=== PATIENT | male | born 1980 | race Caucasian/White ===

== ENCOUNTER 2019-04-15 08:00 | Emergency (ER) | payer OTHER, SELFPAY ==
--- NOTE | 2019-04-15 08:10 | ED.NAVMDI ---
HPI - Nausea/Vomiting/Diarrhea General Chief complaint: Nausea/Vomiting/Diarrhea Stated complaint: Fever,Diarrhea,Sore Throat,Body Aches Source: patient and RN notes reviewed Mode of arrival: ambulatory Limitations: no limitations Related Data Allergies Allergy/AdvReac Type Severity Reaction Status Date / Time No Known Allergies Allergy Unverified 12/02/17 08:59 Review of Systems Review of Systems: Narrative: CONSTITUTIONAL: Denies malaise, chills, sweats, or fever. EYES: Denies visual changes, redness, or discharge. ENT: Denies rhinorrhea, congestion, sinus pain, otalgia or sore throat. CARDIOVASCULAR: Denies chest pain, palpitations, or edema. RESPIRATORY: Denies cough or dyspnea. GASTROINTESTINAL: Denies abdominal pain, nausea, vomiting, diarrhea, bloody, or mucous stools. GENITOURINARY: Denies dysuria or hematuria. SKIN: Denies rash or itching. MUSCULOSKELETAL: Denies back pain, joint pain, or myalgia. NEUROLOGIC: Denies numbness, weakness, or headache. PSYCHIATRIC: Denies anxiety or depression. All systems reviewed & are unremarkable except as noted in HPI and below PMFSH Comments At time of signature, agree with nursing past medical, surgical, social and family history. There is no relevant family history pertinent to the presenting complaint Exam Narrative: Exam Narrative: GENERAL: Well-appearing, well-nourished, and in no acute distress. HEAD: Normocephalic. EYES: PERRLA, conjunctivae clear. NECK: Supple. No lymphadenopathy CHEST: Speaks in full sentences no respiratory distress. HEART: Regular rate and rhythm. ABDOMEN: Soft, nontender upon palpation, nondistended, normal active bowel sounds, no palpable or pulsatile masses, no guarding. SKIN: Warm, dry, no rash. NEURO: Alert and oriented x3. PSYCH: Normal mood and affect Course Course Emergency Course: Patient is aware of diagnosis, understands and agrees to treatment plan. Anticipatory guidance given. Patient agrees to follow-up as directed and is aware of reasons to seek care at the emergency department. Portions of this record may have been created with voice recognition software Vital Signs Vital signs: Reviewed. Critical Care Time Critical Care Time Critical Care Time: No
[2019-04-15 08:12] VITALS: BP 154/96; PULSE 114; RESP 16; TEMP 39.3; O2SAT 98
--- NOTE | 2019-04-15 08:22 | ED.GENADULT ---
HPI - General Adult General Chief complaint: Nausea/Vomiting/Diarrhea Stated complaint: Fever,Diarrhea,Sore Throat,Body Aches Time Seen by Provider: 04/15/19 08:11 Source: patient and RN notes reviewed Mode of arrival: ambulatory Limitations: no limitations History of Present Illness HPI narrative: 38-year-old male presents with concern for fever, cough, chills, body aches, back pain, diarrhea, one episode of vomiting with a coughing spell, occasional shortness of breath after coughing. He reports he started coughing on Sunday and high fever started yesterday. Reports sinus congestion, pressure, drainage for 6 weeks, reports intermittent sore throat low-grade and fever around 99 for the last 6 weeks. Reports he will have a fever for 1 to 2 days, go another 1 to 2 days without a fever after treating the fever with Tylenol or Motrin. Reports he has not seen a doctor in the last 6 weeks. MD complaint: Fever Related Data Allergies Allergy/AdvReac Type Severity Reaction Status Date / Time No Known Allergies Allergy Unverified 12/02/17 08:59 Review of Systems Review of Systems: Narrative: CONSTITUTIONAL: Reports malaise, chills, sweats, fever. ENT: Reports rhinorrhea, congestion, sore throat. Denies sinus pain, otalgia. CARDIOVASCULAR: Denies chest pain, palpitations, or edema. RESPIRATORY: Reports cough, chest congestion, occasional dyspnea, chest pain with coughing. GASTROINTESTINAL: Denies abdominal pain, bloody, or mucous stools. Reports nausea, one episode of vomiting, occasional diarrhea SKIN: Denies rash MUSCULOSKELETAL: Reports low back pain, myalgia. NEUROLOGIC: Reports occasional headache. All systems reviewed & are unremarkable except as noted in HPI and below PMFSH Social History Social History Gender identity (if verbalized by the patient): Male Comments At time of signature, agree with nursing past medical, surgical, social and family history. There is no relevant family history pertinent to the presenting complaint Exam Narrative: Exam Narrative: GENERAL: Well-appearing, well-nourished, and in no acute distress. HEAD: Normocephalic, atraumatic. EYES: PERRLA, conjunctivae clear ENT: Nares clear, turbinates edematous and erythematous, purulent discharge, sinus tenderness. Mucous membranes moist. TM pearly golden with dull light reflex bilaterally; no tragal tenderness. Oropharynx erythematous without lesions. Tonsils enlarged and without exudate, no drooling, no hoarseness, no trismus. NECK: Supple. No lymphadenopathy CHEST: Clear to auscultation, breath sounds equal. No wheezing, rhonchi, rales, or stridor. No respiratory distress, speaks in full sentences. HEART: Regular rate and rhythm. No murmur heard. Normal peripheral pulses. SKIN: Warm, dry, no rash. NEURO: Alert and oriented x3. PSYCH: Normal mood and affect Course Course Emergency Course: Discussed with patient limited diagnostic availability at urgent care regarding his fever for 6 weeks. Discussed with patient options of further evaluation emergency room or seeking further evaluation with a primary care provider. Patient chooses to not seek care at the emergency room at this time. Will treat patient for bacterial sinusitis, patient understands that influenza symptoms will not be treated with antibiotic. Patient is aware of diagnosis, understands and agrees to treatment plan. Anticipatory guidance given. Patient agrees to follow-up as directed and is aware of reasons to seek care at the emergency department. Portions of this record may have been created with voice recognition software Vital Signs Vital signs: Vital Signs Temperature 102.8 F H 04/15/19 08:12 Pulse Rate 114 H 04/15/19 08:12 Respiratory Rate 16 04/15/19 08:12 Blood Pressure 154/96 H 04/15/19 08:12 Pulse Oximetry 98 04/15/19 08:12 Temperature 102.8 F H 04/15/19 08:12 Pulse Rate 114 H 04/15/19 08:12 Respiratory Rate 16 04/15/19 08:12 Blood Pressure 154/96 H
== END 2019-04-15 08:45 | disposition home or self-care (01) ==
PROVIDERS: Emergency Provider Nurse Practitioner
DX: J10.1 Influenza due to other identified influenza virus with other respiratory manifestations (principal)
CPT/HCPCS: 87804; 87880; 99213; G0463

== ENCOUNTER 2020-01-22 13:10 | Emergency (ER) | payer SELFPAY ==
[2020-01-22 13:16] VITALS: BP 131/84; PULSE 76; RESP 18; TEMP 36.4; O2SAT 99
--- NOTE | 2020-01-22 13:23 | ED.EAR ---
HPI - Ear Problem General Chief complaint: Ear Stated complaint: Ear Pain Time Seen by Provider: 01/22/20 13:23 Source: patient and RN notes reviewed History of Present Illness HPI Narrative: Patient is a 39-year-old male who presents the urgent care with complaints of right ear pain. Patient states that it started as an itch last night and he proceeded to vigorously rub the ear, causing pain. Patient states he then use peroxide and a cotton swab in the ear and had bloody drainage. Denies of any known trauma to the ear. Denies of any fever or other upper respiratory symptoms. No other acute complaints. No acute distress noted. Patient aware of the plan of care. Some parts of this dictation were generated by voice recognition software and may contain typographical and/or grammatical inaccuracies. Related Data Allergies Allergy/AdvReac Type Severity Reaction Status Date / Time No Known Allergies Allergy Unverified 12/02/17 08:59 Review of Systems Review of Systems: Narrative: CONSTITUTIONAL: Denies fever, chills, or sweats. EYES: Denies visual changes, redness, or discharge. ENT: Reports of right ear pain and bleeding CARDIOVASCULAR: Denies chest pain, palpitations, or edema. RESPIRATORY: Denies cough or dyspnea. GASTROINTESTINAL: Denies abdominal pain, nausea, vomiting, or diarrhea. GENITOURINARY: Denies dysuria or hematuria. SKIN: Denies rash or itching. MUSCULOSKELETAL: Denies back pain, joint pain, or myalgia. NEUROLOGIC: Denies headache, numbness, or weakness. All other systems reviewed are negative, except as documented in HPI. [facility] Past Medical History Medical History (Updated 01/22/20 @ 13:31 by FERNANDO Domínguez) Appendicitis Surgical History Surgical History (Updated 05/05/19 @ 13:51 by Roz Leonard MD) Hx of tonsillectomy S/P appendectomy Social History Social History (Updated 05/05/19 @ 13:32 by Leatha Lauren) Social History: Smoking status: Never smoker Second hand tobacco smoke exposure: No Alcohol intake: current Drinks per week: 12 Substance use: never Substance use type: does not use Gender identity (if verbalized by the patient): Male Comments At the time of my signature, I reviewed and agree with the nursing past medical, surgical, social, and family history. There is no relevant family history pertinent to the patient complaint. Exam Narrative: Exam Narrative: GENERAL: This is a well-nourished, well-developed patient, in no apparent distress. HEAD: normocephalic, atraumatic. EYES: PERRL. Sclera clear/white. Vision is grossly intact. EARS: External ears normal, left external auditory canal within normal limits. Left TM within normal limits. Right external auditory canal with notable posterior abrasion and purulent yellow to clear drainage. Unable to see right TM due to purulent drainage. Pain with assessment to the right. NOSE: External nose normal with no obvious nasal discharge, nares without redness, no rhinorrhea. THROAT: Mucous membranes moist, posterior pharynx clear. NECK: Neck supple SKIN: warm, intact with no suspicious lesions or rash, good texture and turgor. NEURO: awake, alert, and oriented to person, place and time. There were no obvious focal neurologic abnormalities. EXTREMITIES: No clubbing, cyanosis, or edema. Course Vital Signs Vital signs: Vital Signs Temperature 97.6 F 01/22/20 13:16 Pulse Rate 76 01/22/20 13:16 Respiratory Rate 18 01/22/20 13:16 Blood Pressure 131/84 01/22/20 13:16 Pulse Oximetry 99 01/22/20 13:16 Temperature 97.6 F 01/22/20 13:16 Pulse Rate 76 01/22/20 13:16 Respiratory Rate 18 01/22/20 13:16 Blood Pressure 131/84 01/22/20 13:16 Pulse Oximetry 99 01/22/20 13:16 Reviewed Medical Decision Making MDM Narrative Medical decision making narrative: Due to purulent drainage and obvious abrasion in the ear canal, unable to irrigate. Avoiding more irritation
== END 2020-01-22 13:36 | disposition home or self-care (01) ==
PROVIDERS: Emergency Provider Nurse Practitioner Family; PCP Family Medicine
DX: S00.411A Abrasion of right ear, initial encounter (principal); X58.XXXA Exposure to other specified factors, initial encounter; H66.91 Otitis media, unspecified, right ear
CPT/HCPCS: 99213; G0463

== ENCOUNTER 2021-02-11 16:02 | Emergency (ER) | payer OTHER, SELFPAY ==
[2021-02-11 16:10] VITALS: BP 143/92; PULSE 103; RESP 16; TEMP 37.9; O2SAT 98
--- NOTE | 2021-02-11 16:51 | ED.GENADULT ---
HPI - General Adult General Chief complaint: Upper Respiratory Infection Stated complaint: congestion Source: patient Mode of arrival: ambulatory Limitations: no limitations History of Present Illness HPI narrative: Patient is a 40-year-old male who presents to [facility] via POV for an evaluation of upper respiratory symptoms that have been present for approximately 7 days. Additionally, he reports myalgias, dry cough, chest congestion, and fever. He states his maximum temperature was 102.0. DayQuil improves symptoms. Nothing worsens symptoms. Patient denies known exposure or sick contacts. He also denies being vaccinated against Covid Related Data Allergies Allergy/AdvReac Type Severity Reaction Status Date / Time No Known Allergies Allergy Verified 02/11/21 16:20 Review of Systems Review of Systems: Pertinent negatives: sweats, chills, change in appetite, fatigue, skin color changes, headache, nasal congestion/discharge, dizziness, lymphadenopathy, sinus problems, ear pain/drainage, chest pain, heart murmurs, heart palpitations, shortness of breath, wheezing, cyanosis, hemoptysis, hoarseness, orthopnea, pleuritic pain, nausea, vomiting, diarrhea PMFSH Past Medical History Medical History Appendicitis Surgical History Surgical History Hx of tonsillectomy S/P appendectomy Social History Social History Social History: Smoking status: Never smoker Second hand tobacco smoke exposure: No Alcohol intake: current Drinks per week: 12 Substance use: never Substance use type: does not use Gender identity (if verbalized by the patient): Male Comments I have reviewed and agree with the patient's past medical, surgical, social, and family hx as documented by the RN. There is no relevant family history pertinent to the presenting complaint. Exam Narrative: GENERAL: Well-appearing, well-nourished, and in no acute distress. Febrile. HEAD: Normocephalic, atraumatic. No sinus tenderness or facial swelling appreciated. EYES: PERRLA and EOMI. No evidence of erythema, swelling, or drainage. ENT: Bilateral external ears and ear canals normal. Bilateral TMs are normal.No TM perforation. Nares clear, no rhinorrhea or epistaxis. Bilateral turbinates without erythema/ swelling. Mucous membranes moist and pink. Uvula is midline without erythema and swelling. No evidence of petechial rash, cobblestoning, lesions, ulcers, erythema, swelling, exudates, peritonsillar abscess, tenting, or drooling. Breath odor and voice normal. NECK: Supple. No Lymphadenopathy or nuchal rigidity appreciated. CHEST: Bilateral lung blunt are clear to auscultation. No respiratory distress. Mild dry cough appreciated on examination HEART: Tachycardia with a rate of 103. Regular rhythm. No murmur, gallop, or rub heard. EXTREMITIES: Normal range of motion. No edema. SKIN: Warm, dry, no rash. NEURO: No focal deficits. Alert and oriented x3. Course Vital Signs Vital signs: Vital Signs Temperature 100.2 F H 02/11/21 16:10 Pulse Rate 103 H 02/11/21 16:10 Respiratory Rate 16 02/11/21 16:10 Blood Pressure 143/92 H 02/11/21 16:10 Pulse Oximetry 98 02/11/21 16:10 Temperature 100.2 F H 02/11/21 16:10 Pulse Rate 103 H 02/11/21 16:10 Respiratory Rate 16 02/11/21 16:10 Blood Pressure 143/92 H 02/11/21 16:10 Pulse Oximetry 98 02/11/21 16:10 Due to an elevated blood pressure, I had a detailed discussion with the patient and/or guardian regarding the need for follow-up with their primary care provider within the next 3-4 days. Patient verbalized understanding and agreed. Medical Decision Making Medical Records Medical records reviewed: Yes I reviewed the external patient's medical records. Vital Signs Vital Signs: Vital Signs
== END 2021-02-11 17:17 | disposition home or self-care (01) ==
PROVIDERS: Emergency Provider Nurse Practitioner Family
DX: U07.1 COVID-19 (principal)
CPT/HCPCS: 87426; 87804; 99213; C9803; G0463

== ENCOUNTER 2023-02-20 16:10 | Emergency (ER) | payer OTHER, SELFPAY ==
[2023-02-20 16:32] VITALS: BP 130/92; PULSE 81; RESP 16; TEMP 37.3; O2SAT 100
--- NOTE | 2023-02-20 17:32 | ED.EAR ---
HPI - Ear Problem General Chief complaint: Ear Stated complaint: Right Ear Irritation Source: patient Mode of arrival: ambulatory Limitations: no limitations History of Present Illness HPI Narrative: 42-year-old male presenting for complaint of right ear pain for 4 days. He endorses tinnitus and muffled hearing. Rates pain 3/10. Denies any associated symptoms. Has not taken anything for pain. MD Complaint: ear pain Related Data Home Medications Medication Instructions Recorded Confirmed No Home Medications 02/20/23 02/20/23 Allergies Allergy/AdvReac Type Severity Reaction Status Date / Time No Known Allergies Allergy Verified 02/11/21 16:20 Review of Systems Review of Systems: CONSTITUTIONAL: Denies malaise, chills, or fever. EYES: Denies visual changes, redness, or discharge. ENT: Denies rhinorrhea, congestion, sinus pain, and sore throat. Reports ear pain CARDIOVASCULAR: Denies chest pain, palpitations, or edema. RESPIRATORY: Denies cough or dyspnea. GASTROINTESTINAL: Denies abdominal pain, nausea, vomiting, diarrhea SKIN: Denies rash or itching. MUSCULOSKELETAL: Denies myalgia. NEUROLOGIC: Denies headache. All systems reviewed & are unremarkable except as noted in HPI and below PMFSH Past Medical History Medical History Appendicitis Surgical History Surgical History Hx of tonsillectomy S/P appendectomy Social History Social History Social History: Smoking status: Never smoker Second hand tobacco smoke exposure: No Alcohol intake: current Drinks per week: 12 Substance use: never Substance use type: does not use Living arrangements: with family Occupation/Education: occupation Gender identity (if verbalized by the patient): Male Comments At time of signature, agree with nursing past medical, surgical, social and family history. There is no relevant family history pertinent to the presenting complaint Exam Narrative: GENERAL: Well-appearing, well-nourished, and in no acute distress. HEAD: Normocephalic EYES: PERRLA, conjunctivae clear ENT: Nares clear. Mucous membranes moist. Right TM unable to visualize due to excess cerumen. TM pearly golden with dull light reflex bilaterally; no tragal tenderness. Oropharynx not erythematous without lesions. Tonsils not enlarged and without exudate, no drooling, no hoarseness, no trismus, uvula midline. NECK: Supple. No lymphadenopathy CHEST: Clear to auscultation, breath sounds equal. No wheezing, rhonchi, rales, or stridor. No respiratory distress, speaks in full sentences. HEART: Regular rate and rhythm. No murmur heard. SKIN: Warm, dry, no rash. NEURO: Alert and oriented x3. PSYCH: Normal mood and affect Course Course Emergency Course: Patient is aware of diagnosis, understands and agrees to treatment plan. Anticipatory guidance given. Patient agrees to follow-up as directed and is aware of reasons to seek care at the emergency department. Portions of this record may have been created with voice recognition software Level of Care: Express Care Visit Vital Signs Vital signs: Vital Signs Temperature 99.2 F 02/20/23 16:32 Pulse Rate 81 02/20/23 16:32 Respiratory Rate 16 02/20/23 16:32 Blood Pressure 130/92 H 02/20/23 16:32 Pulse Oximetry 100 02/20/23 16:32 Oxygen Delivery Room Air 02/20/23 16:32 Temperature 99.2 F 02/20/23 16:32 Pulse Rate 81 02/20/23 16:32 Respiratory Rate 16 02/20/23 16:32 Blood Pressure 130/92 H 02/20/23 16:32 Pulse Oximetry 100 02/20/23 16:32 Oxygen Delivery Room Air 02/20/23 16:32 Reviewed Procedures Ear Wax Removal Right Ear: Cerumenolytic Used: other ( equal parts warm water and hydrogen peroxide) Results: Re-examined: cerumen removed completely TM Ex
== END 2023-02-20 18:05 | disposition home or self-care (01) ==
PROVIDERS: Emergency Provider Nurse Practitioner Family
DX: H61.21 Impacted cerumen, right ear (principal)
CPT/HCPCS: 69210; 99212; A9270; G0463

== ENCOUNTER 2023-09-20 19:53 | Emergency (ER) | payer OTHER, SELFPAY ==
[2023-09-20 19:55] VITALS: BP 175/88; PULSE 102; RESP 16; TEMP 36.8; O2SAT 98
[2023-09-20] MEDS: TETRACAINE HCL 0.5% OPHTH SOLN 4 ML BTL 1 DROP EACH EYE (22:02)
[2023-09-20] MEDS: FLUORESCEIN SOD 1 MG/STRIP EACH EYE (22:02)
--- NOTE | 2023-09-20 22:24 | ED.EYEPROB ---
HPI - Eye Problem General Chief complaint: Eye Problems Stated complaint: eye injury Time Seen by Provider: 09/20/23 21:16 History of Present Illness HPI Narrative: 43-year-old male presents to emergency department for right eye injury that occurred a couple hours ago. Patient states he was doing yard work when he accidentally ran into a tree vine. He reports pain to his eye states it feels like something is in his eye. He is endorsing tearing, blurred vision and photophobia. He does not were contacts. States he was wearing his safety glasses tonight but the tree branch went under his safety glasses. He does note that his left eye has very poor vision due to astigmatism. Related Data Home Medications Medication Instructions Recorded Confirmed lisinopril 10 mg tablet mg 09/20/23 nitroglycerin 0.6 mg sublingual mg 09/20/23 tablet Allergies Allergy/AdvReac Type Severity Reaction Status Date / Time No Known Allergies Allergy Verified 09/20/23 19:57 Review of Systems Review of Systems: All systems reviewed & are unremarkable except as noted in HPI and below PMFSH Past Medical History Medical History Appendicitis Surgical History Surgical History Hx of tonsillectomy S/P appendectomy Social History Social History Social History: Smoking status: Never smoker Second hand tobacco smoke exposure: No Alcohol intake: current Drinks per week: 12 Substance use: never Substance use type: does not use Living arrangements: with family Occupation/Education: occupation Gender identity (if verbalized by the patient): Male Exam Narrative: GENERAL: Well-appearing, well-nourished, and in no acute distress. HEAD: Normocephalic, atraumatic. EYES: PERRLA and EOMI. Right eye injected, tearing. No foreign bodies noted to the globe or inner lids. No chemosis or proptosis. No surrounding erythema or edema to the eye. Fluorescein staining shows increased uptake in an irregular shape on the cornea near the 5 o'clock position consistent with an abrasion. Again there are no foreign body seen on forcing staining. Negative Sly sign. Intra-ocular pressure of the right eye is 21mmHg. ENT: Nares clear, no rhinorrhea or epistaxis. Mucous membranes moist. NECK: Supple. CHEST: Clear to auscultation. No respiratory distress. HEART: Regular rate and rhythm. No murmur heard. Normal peripheral pulses. NEURO: No focal deficits. Alert and oriented x3 Course Vital Signs Vital signs: Vital Signs Temperature 98.3 F 09/20/23 19:55 Pulse Rate 102 H 09/20/23 19:55 Respiratory Rate 16 09/20/23 19:55 Blood Pressure 175/88 H 09/20/23 19:55 Pulse Oximetry 98 09/20/23 19:55 Oxygen Delivery Room Air 09/20/23 19:55 Temperature 98.3 F 09/20/23 19:55 Pulse Rate 102 H 09/20/23 19:55 Respiratory Rate 16 09/20/23 19:55 Blood Pressure 175/88 H 09/20/23 19:55 Pulse Oximetry 98 09/20/23 19:55 Oxygen Delivery Room Air 09/20/23 19:55 MDM - Eye Problem MDM Narrative Medical decision making narrative: 43-year-old male presents emergency department for right eye injury after running into a tree branch prior to arrival. Triage vital significant for hypertension of 135/88. Vitals otherwise unremarkable. Exam is significant for injected cornea with tearing present. There is no chemosis or proptosis. Forcing staining shows a corneal abrasion at the 5 o'clock position. There is no evidence of globe injury, negative Sly sign. No foreign bodies visualized. Upon arrival his visual acuity showed 20/200 in the L eye (states this is chronic), with inability to perform visual acuity in his right eye. After tetracaine, patient was able to perform visual acuity in the right eye which is 20/40. He does not were
[2023-09-20] MEDS: MOXIFLOXACIN HCL 0.5% 3 ML OPHTH SOLN 1 DROP RIGHT EYE (22:46)
[2023-09-20] MEDS: IBUPROFEN 400 MG TABLET 800 MG PO (22:47)
== END 2023-09-20 22:52 | disposition home or self-care (01) ==
PROVIDERS: Emergency Provider Physician Assistant
DX: S05.01XA Injury of conjunctiva and corneal abrasion without foreign body, right eye, initial encounter (principal); W22.8XXA Striking against or struck by other objects, initial encounter
CPT/HCPCS: 99283; A9270

== ENCOUNTER 2023-11-17 08:36 | Emergency (ER) | payer OTHER, SELFPAY ==
[2023-11-17 08:37] VITALS: BP 137/82; PULSE 83; RESP 20; TEMP 36.5; O2SAT 99
--- NOTE | 2023-11-17 08:57 | ED.URI ---
HPI - URI/Sore Throat General Chief Complaint: Upper Respiratory Infection Stated Complaint: Right Ear Irritation Time Seen by Provider: 11/17/23 08:58 Source: patient, RN notes reviewed and old records reviewed Mode of arrival: ambulatory Limitations: no limitations History of Present Illness HPI Narrative: Patient presents with complaints of discomfort to the right ear. He reports that he is experiencing muffled hearing. Symptoms have been present for about 1 week, worsening. He reports that he has ?been digging? in the ear. He denies any fever, chills, sweats. Denies any runny nose or sore throat Related Data Home Medications Medication Instructions Recorded Confirmed lisinopril 10 mg tablet mg 09/20/23 nitroglycerin 0.6 mg sublingual mg 09/20/23 tablet Allergies Allergy/AdvReac Type Severity Reaction Status Date / Time No Known Allergies Allergy Verified 09/20/23 19:57 Review of Systems Review of Systems: All systems reviewed & are unremarkable except as noted in HPI and below Constitutional: Constitutional: Reports no additional constitutional complaints ENT: Reports system reviewed and no additional complaints, except as documented, Reports as per HPI and Reports otalgia Cardiovascular: Cardiovascular: Reports no additional cardiovascular complaints Respiratory: Respiratory: Reports no additional respiratory complaints Gastrointestinal: Gastrointestinal: Reports no additional gastrointestinal complaints [facility] Past Medical History Medical History Appendicitis Surgical History Surgical History Hx of tonsillectomy S/P appendectomy Social History Social History Social History: Smoking status: Never smoker Second hand tobacco smoke exposure: No Alcohol intake: current Drinks per week: 12 Substance use: never Substance use type: does not use Living arrangements: with family Occupation/Education: occupation Gender identity (if verbalized by the patient): Male Comments At the time of my signature, I reviewed and agree with the nursing past medical, surgical, social, and family history. There is no relevant family history pertinent to the patient complaint. Exam Const: General: cooperative, no acute distress, alert and awake Orientation/consciousness: oriented to person, oriented to place and oriented to time HENMT: Head: normal to inspection Ears: Abnormal EAC present cerumen impaction bilateral Mouth: Yes moist mucous membranes Resp: Effort & Inspection: normal respiratory effort and able to speak in complete sentences Auscultation: clear to auscultation bilaterally, no crackles, no rales, no rhonchi and no wheezes Cardio: Palpation: normal PMI Rate: regular rate Rhythm: regular rhythm Heart sounds: S1 normal heart sound present and S2 normal heart sound present Neuro: General: oriented to person, oriented to place and oriented to time Cranial nerves: Yes CN's II-XII intact bilaterally Psych: Appearance: grossly normal Thought process: Normal thought process present Insight: Good insight present (Psych) Judgement: Good judgement present (Psych) Course Course Level of Care: Express Care Visit Vital Signs Vital signs: Vital Signs Temperature 97.7 F 11/17/23 08:37 Pulse Rate 83 11/17/23 08:37 Respiratory Rate 20 11/17/23 08:37 Blood Pressure 137/82 11/17/23 08:37 Pulse Oximetry 99 11/17/23 08:37 Oxygen Delivery Room Air 11/17/23 08:37 Temperature 97.7 F 11/17/23 08:37 Pulse Rate 83 11/17/23 08:37 Respiratory Rate 20 11/17/23 08:37 Blood Pressure 137/82 11/17/23 08:37 Pulse Oximetry 99 11/17/23 08:37 Oxygen Delivery Room Air 11/17/23 08:37 Reviewed Procedures Ear Wax Removal Both Ears: Ear Wax Removal Date: 11/17/23
== END 2023-11-17 09:33 | disposition home or self-care (01) ==
PROVIDERS: Emergency Provider Nurse Practitioner Family; PCP Nurse Practitioner
DX: H61.23 Impacted cerumen, bilateral (principal)
CPT/HCPCS: 69210; 99213; G0463